=== PATIENT | female | born 1995 | race African-American/Black ===

== ENCOUNTER → 2023-04-04 | Emergency (ER) | payer OTHER ==
[2023-04-04 23:54] LABS: SARS-CoV-2 Antigen Rapid Res Negative (Negative)
--- NOTE | 2023-04-05 00:04 | ER ---
Nurse's Notes [facility] Name: Mady Tidwell Age: 27 yrs Sex: Female : 1995 Arrival Date: 04/04/2023 Time: 23:14 Bed 6 Private MD: Diagnosis: Nausea with vomiting, unspecified;Diarrhea, unspecified Presentation: 04/04 23:18 Chief complaint: Patient states: NEEDS A WORK EXCUSE. WAS HAVING FEVER, N/V/D STARTED jj7 TODAY .FEELING BETTER. Coronavirus screen: At this time, the client does not indicate any symptoms associated with coronavirus-19. Ebola Screen: No symptoms or risks identified at this time. Initial Sepsis Screen: Does the patient meet any 2 criteria? No. Patient's initial sepsis screen is negative. Does the patient have a suspected source of infection? No. Patient's initial sepsis screen is negative. Risk Assessment: Do you want to hurt yourself or someone else? Patient reports no desire to harm self or others. 23:18 Method Of Arrival: Ambulatory [facility] 23:18 Acuity: RUBEN 4 jj7 Triage Assessment: 23:22 General: Appears in no apparent distress. comfortable, Behavior is calm, cooperative, jj7 appropriate for age. Pain: Denies pain. GI: No deficits noted. 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 - Social history:: Smoking status: Patient denies any tobacco usage or history of. Patient uses alcohol, on a daily basis. Patient/guardian denies using street drugs. Screenin:24 [facility] ED Fall Risk Assessment (Adult) History of falling in the last 3 months, jj7 including since admission No falls in past 3 months (0 pts) Confusion or Disorientation No (0 pts) Intoxicated or Sedated No (0 pts) Impaired Gait No (0 pts) Mobility Assist Device Used No (0 pt) Altered Elimination No (0 pt) Score/Fall Risk Level 0 - 2 = Low Risk Oriented to surroundings, Maintained a safe environment, Educated pt \T\ family on fall prevention, incl call for assistance when getting out of bed. Abuse screen: Denies threats or abuse. Nutritional screening: No deficits noted. Tuberculosis screening: No symptoms or risk factors identified. Assessment: 23:24 Reassessment: SEE TRIAGE ASSESSMENT. GI: Abdomen is flat, non-distended. jj7 Vital Signs: 23:18 BP 130 / 73; Pulse 82; Resp 16; Temp 98.4; Pulse Ox 100% ; Weight 90.26 kg; Height 5 jj7 ft. 4 in. ; Pain 0/10; 04/05 00:10 BP 127 / 76; Pulse 80; Resp 19; Pulse Ox 100% ; Pain 0/10; jj7 04/04 23:18 Body Mass Index 34.16 (90.26 kg, 162.56 cm) jj7 04/04 23:18 Pain Scale: Adult jj7 04/05 00:10 Pain Scale: Adult jj7 ED Course: 04/04 23:16 Patient arrived in ED. jj6 23:18 Aleksandra Hernandez FNP-C is [facility]. kb 23:18 Zbigniew Miller MD is Attending Physician. kb 23:22 Triage completed. jj7 23:22 Arm band placed on left wrist. jj7 23:24 Patient has correct armband on for positive identification. jj7 23:24 No provider procedures requiring assistance completed. Patient did not have IV access jj7 during this emergency room visit. 23:26 Flu Sent. jj7 23:26 SARS RAPID Sent. jj7 Administered Medications: No medications were administered Medication: 23:24 VIS not applicable for this client. jj7 Outcome: 04/05 00:03 Discharge ordered by . delia 00:10 Discharged to home ambulatory, with family, jj7 00:10 Condition: good 00:10 Discharge instructions given to patient, Instructed on discharge instructions, Demonstrated understanding of instructions, 00:11 Patient left the ED. jj7 Signatures: Aleksandra Hernandez FNP-C FNP-Isa [place] jj6 Jocelynn Gutierrez RN RN jj7
--- NOTE | 2023-04-05 00:04 | EDPHYS ---
Physician Documentation [facility] Name: Mady Tidwell Age: 27 yrs Sex: Female : 1995 Arrival Date: 04/04/2023 Time: 23:14 Bed 6 Private MD: ED Physician Zbigniew Miller HPI: 04/04 23:44 This 27 yrs old Black Female presents to ER via Ambulatory with complaints of kb Nausea/Vomiting/Diarrhea, Fever. 23:45 Pt is a 27 year old female who reports she had fever, n/v/d that started last night. kb States it continued today so she called into work. States her employer just sent her a message stating she needed a note to return to work tomorrow. States fever, nausea and vomiting have all resolved. Reports her stool is still a little loose. Denies abd pain. States she only came in for evaluation because her employer said she had to. . 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 - Social history:: Smoking status: Patient denies any tobacco usage or history of. Patient uses alcohol, on a daily basis. Patient/guardian denies using street drugs. ROS: 23:43 Neuro: Negative for headache, weakness, numbness, tingling, and seizure, kb 23:43 Constitutional: Positive for fever, 23:43 ENT: Positive for rhinorrhea, sinus congestion, 23:43 Respiratory: Positive for cough, 23:43 Abdomen/GI: Positive for nausea, vomiting, and diarrhea, Negative for abdominal pain, 23:43 All other systems are negative, Exam: 23:43 Constitutional: This is a well developed, well nourished patient who is awake, alert, kb and in no acute distress. Head/Face: Normocephalic, atraumatic. ENT: Moist Mucous membranes Cardiovascular: Regular rate Respiratory: Respirations even and unlabored. No increased work of breathing. Talking in full sentences Abdomen/GI: Soft, non-tender. No distention Skin: Warm, dry with normal turgor. Normal color. MS/ Extremity: Pulses equal, no cyanosis. Neurovascular intact. Full, normal range of motion. Neuro: Awake and alert, GCS 15, oriented to person, place, time, and situation. Moves all extremities. Normal gait. Vital Signs: 23:18 BP 130 / 73; Pulse 82; Resp 16; Temp 98.4; Pulse Ox 100% ; Weight 90.26 kg; Height 5 jj7 ft. 4 in. ; Pain 0/10; 04/05 00:10 BP 127 / 76; Pulse 80; Resp 19; Pulse Ox 100% ; Pain 0/10; 7 04/04 23:18 Body Mass Index 34.16 (90.26 kg, 162.56 cm) [facility] 04/04 23:18 Pain Scale: Adult [facility] 04/05 00:10 Pain Scale: Adult j MDM: 04/04 23:18 Patient medically screened. kb 23:44 Differential diagnosis: flu, covid, uri, gastroenteritis. Data reviewed: vital signs, kb nurses notes. 23:44 Test considered but Not performed: Labs: cbc, cmp considered, but pt reports symptoms kb have resolved and she is tolerating po intake. 04/05 00:02 Counseling: I had a detailed discussion with the patient and/or guardian regarding the kb historical points, exam findings, and any diagnostic results supporting the discharge/admit diagnosis, lab results, the need for outpatient follow up, a family practitioner, to return to the emergency department if symptoms worsen or persist or if there are any questions or concerns that arise at home. 04/04 23:21 Order name: Flu; Complete Time: 00:02 kb 04/04 23:22 Order name: SARS RAPID; Complete Time: 00:02 kb 04/04 23:33 Order name: PO challenge; Complete Time: 00:00 kb Administered Medications: No medications were administered Disposition: 00:43 Co-signature as Attending Physician, Zbigniew Miller MD I agree with the assessment sp4 and plan of care. I reviewed the patient's care provided by the Advanced Practice Provider and agree with the diagnosis and treatment plan. Disposition Summary: 04/05/23 00:03 Discharge Ordered Notes: Location: Home kb Condition: Stable kb Diagnosis - Nausea with vomiting, unspecified kb - Diarrhea, unspecified kb Followup: kb - With: Emergency Department - When: As needed - Reason: Worsening of condition Followup: kb - With: Private Physician - When: 2 - 3 days - Reason: Recheck today's complaints, Continuance of care, Re-evaluation by your physician Discharge Instructions: - Discharge Summary Sheet kb - Food Choices to Help Relieve Diarrhea, Adult kb - Viral Gastroenteritis, Adult, [id number] kb Forms: - Work release form kb - Medication Reconciliation Form kb - Thank You Letter kb - Antibiotic Education kb - Prescription Opioid Use kb - Patient Portal Instructions kb - Leadership Thank You Letter kb Signatures: Dispatcher [employer] EDMS Aleksandra Hernandez FNP-C ROCKY-Jocelynn Cordova RN RN jj7 Zbigniew Miller MD MD sp4 Corrections: (The following items were deleted from the chart) 04/04 23:37 23:22 SARS-COV-2 RT PCR+[id number].[id number].BRZ ordered. EDGA EDGA
[2023-04-05 07:07] VITALS: BP 127/76; TEMP 98.4; O2SAT 100
== END ==
LOC: ER 23:14
DX: R11.2 Nausea with vomiting, unspecified (principal); R19.7 Diarrhea, unspecified; Z11.52 Encounter for screening for COVID-19
CPT/HCPCS: 36415; 87804; 87811; 99283

== ENCOUNTER → 2023-05-09 | Emergency (ER) | payer OTHER ==
[~2023-05-09] MED LIST: NA CHLORIDE 0.9% 1,000 ML ONE; ONDANSETRON 4 MG/2 ML VIAL ONE; POTASSIUM 25 MEQ EFFERV TAB ONE
--- OUTSIDE RECORDS SUMMARY | 2023-05-09 13:03 | XMS REPORT | Continuity of Care Document ---
Author Name Unknown Address [address] [place] [address]. [address] [place] [address] [facility] Address [address] [facility]. [address] [place] [address] Care Team Providers Care Carding Machine Feeder Name Role Phone Unavailable Unavailable Unavailable Encounters Start Date/Time End Date/Time Encounter Type Admission Type Attending Clinicians Care Facility Care Department Encounter ID Source 2023-04-19 10:29:16 2023-04-19 10:29:16 Outpatient [facility] [id number] Fabio Staples 2023-04-05 11:01:16 2023-04-05 11:01:16 Outpatient [facility] [id number] Fabio Maria A Staples Results Test Description Test Time Test Comments Results Result Co mments Source HPV HIGH RISK WITH GENOTYPE, [id number] 17:25:59* Test Item Value Reference Range Interpretation Comme nts HPV HIGH RISK INTERP (test code = 27956) NEGATIVE NEGATIVE HPV 16 (test code = 93300) NEGATIVE HPV 18 (test code = 92142) NEGATIVE HPV, HR, OTHER GENOTYPES (test code = 79543) NEGATIVE Testing methodol ogy is real-time PCR utilizing hydrolysis probes with the Nicol Nicolle 4800 system. The test individually detects genotypes 16 and 18, as well as the other 12 high risk types (31,33,35,39,45,51,52,56 ,58,59,66,68). The expected result is negative. A negative result does not rule out the presence of HPV not included in the genotype set, a low level of infection or specimen sampling error. UNLESS OTHERWISE INDICATED, ALL TESTING PERFORMED AT [facility] [address] [place] [id number] CONSULTING SERVICES PROJECT MANAGER: ELIZABETH GARCIA M.D. CLIA NUMBER [id number] [facility] [place]. [id number] HEPATITIS PANEL, [id number] 04:35:18* Test Item Value Reference Range Interpretation Comme nts HEPATITIS A TOTAL AB (test code = 2725) NON-REACTIVE NON-REACTIVE HEPATITIS B SURF AG (test code = 2739) NON-REACTIVE NON-REACTIVE HEP B CORE TOTAL AB (test code = 2729) NON-REACTIVE NON-REACTIVE HEPATITIS B SURFACE AB (test code = 2737) NON-REACTIVE NON-REACTIVE HEPATITIS C ANTIBODY (test code = 4675) NON-REACTIVE NON-REACTIVE INTERPRETATION HEPATITIS A: (test code = 2552) (NOTE) Hepatitis A sero logy shows no evidence of past exposure to orcurrent infection with hepatitis A virus; patient not immune tohepatitis A. INTERPRETATION HEPATITIS B: (test code = 13634) (NOTE) Hepatitis B sero logy shows no evidence of past exposure to orcurrent infection with hepatitis B virus. No evidence of hepatitis Bimmunization is identified. INTERPRETATION HEPATITIS C: (test code = 44803) (NOTE) Hepatitis C sero logy shows no evidence of exposure to hepatitisC virus at this time. It can take up to 12 months after exposure tothe hepatitis C virus for antibodies to become detectable in the blood in certain patients. HIV 1/2 4TH GEN, RFLX [id number] 04:35:18* Test Item Value Reference Range Interpretation Comme nts HIV 1/2 4TH GEN, RFLX CONF (test code = 3514) NON-REACTIVE NON-REACTIVE UNLESS OTHERWISE INDICATED, ALL TESTING PERFORMED AT [facility] [address] [place] [address] CONSULTING SERVICES PROJECT MANAGER: LEIZABETH GARCIA M.D. [place] NUMBER [id number] [facility] [place]. [id number] LIPID [id number] 04:20:29* Test Item Value Reference Range Interpretation Comme nts CHOLESTEROL (test code = 2210) 172 MG/DL <200 TRIGLYCERIDES (test code = 2232) 205 MG/DL <150 H HDL CHOLESTEROL (test code = 2220) 40 MG/DL >39 CALC LDL CHOL (test code = 2237) 100 MG/DL <100 H NOTE: CALCULATED LDL IS BASED ON BLAKE-ASHBY METHOD WHICHINCLUDES ADJUSTABLE TRIGLYCERIDE:VLDL CHOLESTEROL RATIO.THIS FACTOR VARIES BY MEASURED TRIGLYCERIDE AND NON-HDLCHOLESTEROL CONCENTRATIONS WITH INCREASED CALCULATED LDL SEENIN HIGHER TRIGLYCERIDE OR LOWER NON-HDL SPECIMENS. FOR MOREINFORMATION, SEE CLIENT ANNOUNCEMENT AT [email or web address] RISK RATIO LDL/HDL (test code = 2237) 2.50 RATIO <3.22 COMPREHENSIVE METABOLIC [id number] 04:20:29* Test Item Value Reference Range Interpretation Comme nts GLUCOSE (test code = 2216) 80 MG/DL 70-99 BUN (test code = 2207) 10 MG/DL 6-20 CREATININE (test code = 2213) 0.70 MG/DL 0.60-1.30 eGFR (2020 CKD-EPI) (test code = 90349) 121 ML/MIN/1.73 >60 CALC BUN/CREAT (test code = 2234) 14 RATIO 6-28 SODIUM (test code = 2230) 141 MEQ/L 133-146 POTASSIUM (test code = 2227) 4.1 MEQ/L 3.5-5.4 CHLORIDE (test code = 2214) 102 MEQ/L 95-107 CARBON DIOXIDE (test code = 2205) 22 MEQ/L 19-31 CALCIUM (test code = 2208) 9.7 MG/DL 8.5-10.5 PROTEIN, TOTAL (test code = 2228) 8.0 G/DL 6.1-8.3 ALBUMIN (test code = 2200) 4.4 G/DL 3.5-5.2 CALC GLOBULIN (test code = 2240) 3.6 G/DL 1.9-3.7 CALC A/G RATIO (test code = 2233) 1.2 RATIO 1.0-2.6 BILIRUBIN, TOTAL (test code = 2206) 0.4 MG/DL <=1.2 ALKALINE PHOSPHATASE (test code = 2203) 108 U/L 40-112 AST (test code = 2217) 19 U/L 9-40 ALT (test code = 2218) 25 U/L 5-40 HEMOGLOBIN [id number] 03:12:23* Test Item Value Reference Range Interpretation Comme [facility] HEMOGLOBIN A1c (test code = 48670) 5.7 % 4.2-5.6 H [employer]ATION GUIDELINES FOR HGB A1C: PREDIABETES/INCREASED RISK . . . . . . . 5.7-6.4% DIAGNOSIS OF DIABETES . . . . . . . . . >=6.5% WITH CONFIRMATION OR APPROPRIATE SYMPTOMS NOTE: ASSAY MAY BE AFFECTED BY HEMOGLOBINOPATHIES (SICKLE CELL ANEMIA, S-C DISEASE, OTHERS) OR ARTIFICIALLY LOWERED BY DECREASED RED CELL SURVIVAL (HEMOLYTIC ANEMIAS, BLOOD LOSS, ETC.). CONSIDER ALTERNATE TESTING OR LABORATORY CONSULTATION. CBC W/AUTO DIFF WITH [id number] 02:36:26* Test Item Value Reference Range Interpretation Comme nts WBC (test code = 1001) 7.6 K/UL 3.5-11.0 RBC (test code = 1002) 4.84 M/UL 3.80-5.40 HEMOGLOBIN (test code = 1003) 12.6 G/DL 11.5-15.5 HEMATOCRIT (test code = 1004) 38.9 % 34.0-45.0 MCV (test code = 1005) 80.4 fL 80.0-99.0 MCH (test code = 1006) 26.0 PG 25.0-33.0 MCHC (test code = 1007) 32.4 G/DL 31.0-36.0 RDW (test code = 1038) 13.5 % 11.5-15.0 NEUTROPHILS (test code = 1008) 56.2 % LYMPHOCYTES (test code = 1010) 32.2 % MONOCYTES (test code = 1011) 8.6 % EOSINOPHILS (test code = 1012) 2.0 % BASOPHILS (test code = 1013) 0.7 % IMMATURE GRANULOCYTES (test code = 1036) 0.3 % NUCLEATED RBCS (test code = 1065) 0.0 /100 WBC'S See_Comment [Automated Delya ge] The system which generated this result transmitted reference range: 0.0. The reference range was not used to interpret this result as normal/abnormal. PLATELET COUNT (test code = 1015) 425 K/UL 130-400 H ABSOLUTE NEUTROPHILS (test code = 1066) 4.28 K/UL 1.50-7.50 ABSOLUTE LYMPHOCYTES (test code = 1067) 2.45 K/UL 1.00-4.00 ABSOLUTE MONOCYTES (test code = 1068) 0.65 K/UL 0.20-1.00 ABSOLUTE EOSINOPHILS (test code = 1040) 0.15 K/UL 0.00-0.50 ABSOLUTE BASOPHILS (test code = 1069) 0.05 K/UL 0.00-0.20 ABS IMMATURE GRANULOCYTES (test code = 1020) 0.02 K/UL 0.00-0.10 ABS NUCLEATED RBCS (test code = 03040) 0.00 K/UL 0.00-0.11
[2023-05-09 14:43] LABS: Absolute Lymphocytes (CBC) 2.1 K/uL (0.7-4.9); Hematocrit 36.7 % (36.0-45.0); Lymphocytes % 26.5 % (15.3-44.8); MCV 79.8 fL (80-100); Platelets 397 thou/uL (152-406)
[2023-05-09 14:56] LABS: Albumin 3.7 g/dL (3.4-5.0); Bilirubin Total 0.2 mg/dL (0.2-1.0); Potassium 3.2 mEq/L (3.5-5.1); Protein, Total 8.3 g/dL (6.4-8.2)
[2023-05-09 15:05] LABS: SARS-CoV-2 Antigen Rapid Res Negative (Negative)
--- NOTE | 2023-05-09 15:30 | ER ---
Nurse's Notes [facility] Name: Mady Tidwell Age: 27 yrs Sex: Female : 1995 Arrival Date: 05/09/2023 Time: 13:00 Bed 12 Private MD: Diagnosis: viral gastroenteritis Presentation: 05/09 13:17 Chief complaint: Patient states: Abdominal pain since Tuesday. Nausea, chills, nj1 vomiting, diarrhea today. Coronavirus screen: Vaccine status: Patient reports being unvaccinated. Ebola Screen: Patient denies travel to an Ebola-affected area in the 21 days before illness onset. Initial Sepsis Screen: Does the patient meet any 2 criteria? No. Patient's initial sepsis screen is negative. Does the patient have a suspected source of infection? No. Patient's initial sepsis screen is negative. Risk Assessment: Do you want to hurt yourself or someone else? Patient reports no desire to harm self or others. Onset of symptoms was May 07, 2023. 13:17 Method Of Arrival: Ambulatory [facility] 13:17 Acuity: RUBEN 3 nj1 Historical: - Allergies: 13:22 No Known Allergies; nj1 - PMHx: 13:22 None; nj1 - Immunization history:: Client reports having NOT received the Covid vaccine. - Social history:: Smoking status: Patient denies any tobacco usage or history of. Screenin:36 [facility] ED Fall Risk Assessment (Adult) History of falling in the last 3 months, ap3 including since admission No falls in past 3 months (0 pts). Abuse screen: Denies threats or abuse. Nutritional screening: No deficits noted. Tuberculosis screening: No symptoms or risk factors identified. Assessment: 14:35 Reassessment: Patient is alert, oriented x 3, equal unlabored respirations, skin ap3 warm/dry/pink. General: Appears in no apparent distress. Behavior is calm, cooperative, appropriate for age. Pain: Complains of pain in abdomen Pain began 2-3 days ago. Neuro: Level of Consciousness is awake, alert, obeys commands, Oriented to person, place, time, situation. Cardiovascular: Patient's skin is warm and dry. Respiratory: Airway is patent Respiratory effort is even, unlabored. GI: Abd is soft. Vital Signs: 13:17 BP 139 / 76; Pulse 74; Resp 18; Temp 98.4(O); Pulse Ox 100% on R/A; Weight 88.45 kg; nj1 Height 5 ft. 4 in. ; Pain 5/10; 15:32 BP 132 / 76; Pulse 78; Resp 18; Temp 98; Pulse Ox 99% on R/A; ph 13:17 Body Mass Index 33.47 (88.45 kg, 162.56 cm) nj1 13:17 Pain Scale: Adult [facility] ED Course: 13:02 Patient arrived in ED. im 13:03 Allyson Cevallos PA-C is PHCP. sb4 13:03 Philippe Traylor MD is Attending Physician. sb4 13:21 Triage completed. nj1 13:22 Arm band placed on left wrist. nj1 14:21 Sary Aragon, RN is Primary Nurse. ph 14:35 Initial lab(s) drawn, by me, sent to lab. Flu and/or RSV swab sent to lab. Inserted ap3 saline lock: 22 gauge in right antecubital area, using aseptic technique. Blood collected. 14:36 Patient has correct armband on for positive identification. Bed in low position. Call ap3 light in reach. Side rails up X 1. 15:32 No provider procedures requiring assistance completed. ph 16:23 IV discontinued, intact, bleeding controlled, No redness/swelling at site. Pressure ph dressing applied. Administered Medications: 15:31 Drug: NS 0.9% IV 1000 ml IV at 1 bolus Per protocol; 1000 mL bolus Route: IV; Rate: 1 ph bolus; Site: right antecubital; 16:30 Follow up: Response: No adverse reaction; IV Status: Completed infusion; IV Intake: ph 1000ml 15:31 Drug: Ondansetron IVP 4 mg IVP once; over 2 minutes Route: IVP; Site: right antecubital;ph 16:00 Follow up: Response: No adverse reaction ph 15:31 Drug: Potassium PO Effervescent Tablet 50 mEq PO once; dissolve in 4 ounces of water or ph juice Route: PO; 16:00 Follow up: Response: No adverse reaction ph Medication: 15:32 VIS not applicable for this client. ph Intake: 16:30 IV: 1000ml; Total: 1000ml. ph Outcome: 15:30 Discharge ordered by . sb4 16:23 Discharged to home ambulatory, ph 16:23 Condition: good 16:23 Discharge instructions given to patient, Instructed on discharge instructions, follow up and referral plans. medication usage, Demonstrated understanding of instructions, follow-up care, medications, Prescriptions given X 3, 16:24 Patient left the ED. ph Signatures: Sary Aragon, RN RN ph Mandi Parmar RN RN ap3 Allyson Cevallos, PA-C PA-C sb4 Sada Montiel RN RN nj1 Andree Curran
--- NOTE | 2023-05-09 15:30 | EDPHYS ---
Physician Documentation [facility] Name: Mady Tidwell Age: 27 yrs Sex: Female : 1995 Arrival Date: 05/09/2023 Time: 13:00 Bed 12 Private MD: ED Physician Philippe Traylor HPI: 05/09 13:24 This 27 yrs old Black Female presents to ER via Ambulatory with complaints of Abdominal sb4 Pain, Nausea/Vomiting/Diarrhea. 13:24 nausea, vomiting, diarrhea, abdominal cramping, fever for 2 days now. has been around sb4 children with similar symptoms. was sent home from work today. states she cannot hold anything down. Historical: - Allergies: 13:22 No Known Allergies; nj1 - PMHx: 13:22 None; nj1 - Immunization history:: Client reports having NOT received the Covid vaccine. - Social history:: Smoking status: Patient denies any tobacco usage or history of. ROS: 13:24 Respiratory: Negative for shortness of breath, cough, wheezing, and pleuritic chest sb4 pain, 13:24 Constitutional: Positive for chills, fever, 13:24 Abdomen/GI: Positive for abdominal pain, nausea, vomiting, and diarrhea, 13:24 All other systems are negative, Exam: 13:24 Constitutional: This is a well developed, well nourished patient who is awake, alert, sb4 and in no acute distress. Head/Face: Normocephalic, atraumatic. Eyes: Extra-ocular motions intact. Periorbital areas with no swelling, redness, or edema. ENT: Mucous membranes moist. Cardiovascular: Regular rate and rhythm with a normal S1 and S2. Respiratory: Lungs have equal breath sounds bilaterally, clear to auscultation and percussion. No rales, rhonchi or wheezes noted. No increased work of breathing, no retractions or nasal flaring. Abdomen/GI: Soft, non-tender, no distension. Skin: Warm, dry with normal turgor. Normal color with no rashes, no lesions, and no evidence of cellulitis. MS/ Extremity: Pulses equal, no cyanosis. Neurovascular intact. Full, normal range of motion. Neuro: Awake and alert, GCS 15, oriented to person, place, time, and situation. Motor strength 5/5 in all extremities. Sensory grossly intact. Vital Signs: 13:17 BP 139 / 76; Pulse 74; Resp 18; Temp 98.4(O); Pulse Ox 100% on R/A; Weight 88.45 kg; nj1 Height 5 ft. 4 in. ; Pain 5/10; 15:32 BP 132 / 76; Pulse 78; Resp 18; Temp 98; Pulse Ox 99% on R/A; ph 13:17 Body Mass Index 33.47 (88.45 kg, 162.56 cm) nj1 13:17 Pain Scale: Adult nj1 MDM: 13:24 Patient medically screened. sb4 13:24 Differential diagnosis: viral gastroenteritis, covid, flu, . sb4 15:30 Data reviewed: vital signs, nurses notes, lab test result(s), and as a result, I will sb4 discharge patient. Counseling: I had a detailed discussion with the patient and/or guardian regarding the historical points, exam findings, and any diagnostic results supporting the discharge/admit diagnosis, lab results, to return to the emergency department if symptoms worsen or persist or if there are any questions or concerns that arise at home. 05/09 13:19 Order name: CBC with Diff; Complete Time: 15:03 sb4 05/09 13:19 Order name: CMP; Complete Time: 14:57 sb4 05/09 13:19 Order name: Lipase; Complete Time: 14:57 sb4 05/09 13:19 Order name: SARS RAPID; Complete Time: 15:05 sb4 05/09 13:19 Order name: Flu; Complete Time: 15:17 sb4 05/09 13:19 Order name: IV Saline Lock; Complete Time: 14:35 sb4 05/09 13:19 Order name: Labs collected and sent; Complete Time: 14:35 sb4 Administered Medications: 15:31 Drug: NS 0.9% IV 1000 ml IV at 1 bolus Per protocol; 1000 mL bolus Route: IV; Rate: 1 ph bolus; Site: right antecubital; 16:30 Follow up: Response: No adverse reaction; IV Status: Completed infusion; IV Intake: ph 1000ml 15:31 Drug: Ondansetron IVP 4 mg IVP once; over 2 minutes Route: IVP; Site: right antecubital;ph 16:00 Follow up: Response: No adverse reaction ph 15:31 Drug: Potassium PO Effervescent Tablet 50 mEq PO once; dissolve in 4 ounces of water or ph juice Route: PO; 16:00 Follow up: Response: No adverse reaction ph Disposition: 16:51 Co-signature as Attending Physician, Philippe Traylor MD I reviewed the patient's care rt provided by the Advanced Practice Provider and agree with the diagnosis and treatment plan. Disposition Summary: 05/09/23 15:30 Discharge Ordered Notes: Location: Home sb4 Problem: new sb4 Symptoms: have improved sb4 Condition: Stable sb4 Diagnosis - viral gastroenteritis sb4 Followup: sb4 - With: Emergency Department - When: As needed - Reason: Trouble breathing, Worsening of condition Discharge Instructions: - Discharge Summary Sheet sb4 - Viral Gastroenteritis, Adult, Vnsr-wc-Hyke sb4 Forms: - Work release form sb4 - Thank You Letter sb4 - Patient Portal Instructions sb4 - Leadership Thank You Letter sb4 Prescriptions: - Imodium A-D 2 mg Oral tablet - take 1 tablet ORAL route every 1 to 4 hours as needed for loose stool; sb4 administer after each loose stool until symptoms controlled; do not exceed 8 mg per 24 hrs; 20 tablet; Refills: 0, Product Selection Permitted - Zofran 4 mg Oral Tablet - take 1 tablet ORAL route every 12 hours As needed; 20 tablet; Refills: 0, sb4 Product Selection Permitted - dicyclomine 20 mg Oral tablet - take 1 tablet ORAL route 3 times per day; 30 tablet; Refills: 0, Product sb4 Selection Permitted Signatures: Dispatcher [employer] Sary Martínez RN RN ph Brown, Sophia, PADatC PAMagdi sb4 Philippe Traylor MD MD rt Sada Montiel, RN RN nj1
[2023-05-09 16:57] VITALS: BP 132/76; TEMP 98; O2SAT 99
== END ==
LOC: ER 13:00
DX: A08.4 Viral intestinal infection, unspecified (principal); Z11.52 Encounter for screening for COVID-19; Z28.310 Unvaccinated for COVID-19
CPT/HCPCS: 85025; 36415; 83690; 80053; 87804 ×2; 87811; J2405; J7030; 96361; 96374; 99284

== ENCOUNTER 2023-07-12 23:24 | Emergency (ER) | payer OTHER ==
--- OUTSIDE RECORDS SUMMARY | 2023-07-12 23:26 | XMS REPORT | Continuity of Care Document ---
Author Name Unknown Address [address] [facility] [place] [address] [facility] Address [address] 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 [id number] Fabio Staples 2023-04-05 11:01:16 2023-04-05 11:01:16 Outpatient [facility] [id number] Fabio Maria A Staples Results Test Description Test Time Test Comments Results Result Co mments Source HPV HIGH RISK WITH GENOTYPE, [id number] 17:25:59* Test Item Value Reference Range Interpretation Comme nts HPV HIGH RISK INTERP (test code = 29009) NEGATIVE NEGATIVE HPV 16 (test code = 51960) NEGATIVE HPV 18 (test code = 00018) NEGATIVE HPV, HR, OTHER GENOTYPES (test code = 72825) NEGATIVE Testing methodol ogy is real-time PCR [...] TESTING PERFORMED AT [facility] [address] [place] [id number] ALARM TECHNICIAN: ELIZABETH GARCIA M.D. CLIA NUMBER [id number] [facility] [place]. [id number] HEPATITIS PANEL, [id number] 04:35:18* Test Item Value Reference Range Interpretation [...] A. INTERPRETATION HEPATITIS B: (test code = 95330) (NOTE) Hepatitis B sero logy shows no evidence of past exposure to orcurrent infection with hepatitis B virus. No evidence of hepatitis Bimmunization is identified. INTERPRETATION HEPATITIS C: (test code = 91984) (NOTE) Hepatitis C sero logy shows no evidence of exposure to hepatitisC virus at this time. It can take up to 12 months after exposure tothe hepatitis C virus for antibodies to become detectable in the blood in certain patients. HIV 1/2 4TH GEN, RFLX [id number] 04:35:18* Test Item Value Reference Range Interpretation Comme nts HIV 1/2 4TH GEN, RFLX CONF (test code = 3514) NON-REACTIVE NON-REACTIVE UNLESS OTHERWISE INDICATED, ALL TESTING PERFORMED AT [facility] [address] [place] [address] ALARM TECHNICIAN: Shanelle WORTHY NUMBER [id number] [facility] [place]. [id number] LIPID [id number] 04:20:29* Test Item Value Reference Range Interpretation [...] SPECIMENS. FOR MOREINFORMATION, SEE CLIENT ANNOUNCEMENT AT [email or web address] RISK RATIO LDL/HDL (test code = 2237) 2.50 RATIO <3.22 COMPREHENSIVE METABOLIC [id number] 04:20:29* Test Item Value Reference Range Interpretation Comme nts GLUCOSE (test code = 2216) 80 MG/DL 70-99 BUN (test code = 2207) 10 MG/DL 6-20 CREATININE (test code = 2213) 0.70 MG/DL 0.60-1.30 eGFR (2020 CKD-EPI) (test code = 65308) 121 ML/MIN/1.73 >60 CALC BUN/CREAT (test code [...] G/DL 3.5-5.2 CALC GLOBULIN (test code = 0) 3.6 G/DL 1.9-3.7 CALC A/G RATIO (test code = 2233) 1.2 RATIO 1.0-2.6 BILIRUBIN, TOTAL (test code = 2206) 0.4 MG/DL <=1.2 ALKALINE PHOSPHATASE (test code = 2203) 108 U/L 40-112 AST (test code = 2217) 19 U/L 9-40 ALT (test code = 2218) 25 U/L 5-40 HEMOGLOBIN [id number] 03:12:23* Test Item Value Reference Range Interpretation Comme nts HEMOGLOBIN A1c (test code = 45207) 5.7 % 4.2-5.6 H [employer] GUIDELINES FOR HGB A1C: [...] OR LABORATORY CONSULTATION. CBC W/AUTO DIFF WITH [id number] 02:36:26* Test Item Value Reference Range Interpretation [...] = 1065) 0.0 /100 WBC'S See_Comment [Automated [employer] ge] The system which generated this result [...] 0.00-0.10 ABS NUCLEATED RBCS (test code = 05994) 0.00 K/UL 0.00-0.11
[2023-07-12] MEDS ORDERED: IBUPROFEN 400 MG TAB ONE (23:58)
[2023-07-12] MEDS ORDERED: ACETAMINOPHEN 500 MG TAB ONE (23:58)
[2023-07-12] MEDS ORDERED: GUAIFENESIN/DM 5 ML UCUP ONE (23:59)
[2023-07-13 00:25] LABS: Specific Gravity > 1.030 (1.005-1.030)
--- NOTE | 2023-07-13 00:46 | EDPHYS ---
Physician Documentation [facility] Name: Mady Tidwell Age: 27 yrs Sex: Female : 1995 Arrival Date: 07/12/2023 Time: 23:24 Bed 10 Private MD: ED Physician Zbigniew Miller HPI: 07/11 23:31 This 27 yrs old Black Female presents to ER via Unassigned with complaints of Headache sp4 < 24hrs Old, Cold Symptoms. 07/12 01:17 27-year-old black female presents with acute onset of headache congestion and cough sp4 starting Tuesday 3 days ago. 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 Last tetanus immunization: < 5 years ago Flu vaccine is not up to date. - Infectious Disease History:: Denies. - Social history:: Smoking status: Patient denies any tobacco usage or history of. Patient uses alcohol, occasionally. Patient/guardian denies using street drugs. - Family history:: not pertinent. ROS: 07/12 01:17 Constitutional: Negative for fever, chills, and weight loss, positive for headache, sp4 positive sinus pressure, positive congestion, positive cough All other systems are negative, Exam: 01:17 Constitutional: This is a well developed, well nourished patient who is awake, alert, sp4 and in no acute distress. Head/Face: Normocephalic, atraumatic. Eyes: Pupils equal round and reactive to light, extra-ocular motions intact. Lids and lashes normal. Conjunctiva and sclera are not injected. Cornea within normal limits. Periorbital areas with no swelling, redness, or edema. ENT: Nares patent. No nasal discharge, no septal abnormalities noted. Tympanic membranes are normal and external auditory canals are clear. Oropharynx with no redness, swelling, or masses, exudates, or evidence of obstruction, uvula midline. Mucous membranes moist. Neck: Trachea midline, no thyromegaly or masses palpated, and no cervical lymphadenopathy. Supple, full range of motion without nuchal rigidity, or vertebral point tenderness. Chest/axilla: Normal chest wall appearance and motion. Nontender with no deformity. No lesions are appreciated. Cardiovascular: Regular rate and rhythm with a normal S1 and S2. No gallops, murmurs, or rubs. Normal PMI, no JVD. No pulse deficits. Respiratory: Lungs have equal breath sounds bilaterally, clear to auscultation and percussion. No rales, rhonchi or wheezes noted. No increased work of breathing, no retractions or nasal flaring. Abdomen/GI: Soft, with normal bowel sounds. No distension or tympany. No guarding or rebound. No evidence of tenderness throughout. Back: No spinal tenderness. No costovertebral tenderness. Skin: Warm, dry with normal turgor. Normal color with no rashes, no lesions, and no evidence of cellulitis. MS/ Extremity: Pulses equal, no cyanosis. Neurovascular intact. Full, normal range of motion. Neuro: Awake and alert, GCS 15, oriented to person, place, time, and situation. Cranial nerves II-XII grossly intact. Motor strength 5/5 in all extremities. Sensory grossly intact. Psych: Awake, alert, with orientation to person, place and time. Behavior, mood, and affect are within normal limits Vital Signs: 07/11 23:30 BP 128 / 71; Pulse 78; Resp 16; Temp 97.7; Pulse Ox 100% on R/A; Weight 82.1 kg; Height pf1 5 ft. 4 in. ; Pain 5/10; 07/12 00:30 BP 117 / 75; Pulse 72; Resp 16; Temp 98.1; Pulse Ox 100% on R/A; Pain 3/10; pf1 07/11 23:30 Body Mass Index 31.07 (82.10 kg, 162.56 cm) pf1 07/11 23:30 Pain Scale: Adult pf1 07/12 00:30 Pain Scale: Adult pf1 [place] Coma Score: 01:17 Eye Response: spontaneous(4). Motor Response: obeys commands(6). Verbal Response: sp4 oriented(5). Total: 15. 01:17 Eye Response: spontaneous(4). Motor Response: obeys commands(6). Verbal Response: sp4 oriented(5). Total: 15. MDM: 07/11 23:48 Patient medically screened. sp4 07/12 01:17 Differential diagnosis: cluster headache, migraine, vasomotor headache. Data reviewed: sp4 vital signs, nurses notes, lab test result(s), UPT: negative. ED course: Patient likely has acute common cold with upper viral respiratory infection.. 07/11 23:48 Order name: Test, Urine; Complete Time: 00:44 sp4 Administered Medications: 00:05 Drug: Acetaminophen PO 1000 mg PO once Route: PO; pf1 01:00 Follow up: Response: No adverse reaction; Marked relief of symptoms pf1 00:29 Drug: Ibuprofen PO 800 mg PO once Route: PO; pf1 01:00 Follow up: Response: No adverse reaction; Marked relief of symptoms; Pain is decreased pf1 00:29 Drug: Dextromethorphan-Guaifenesin PO Liquid 10 mg-100 mg/5 mL 10 ml PO once Route: PO; pf1 01:00 Follow up: Response: No adverse reaction; Marked relief of symptoms pf1 Disposition Summary: 07/13/23 00:45 Discharge Ordered Problem: new sp4 Symptoms: have improved sp4 Condition: Stable sp4 Diagnosis - Other specified viral diseases sp4 - Acute upper respiratory infection, unspecified sp4 - Acute viral upper respiratory infection sp4 Followup: sp4 - With: Private Physician - When: 7 - 10 days - Reason: Recheck today's complaints Discharge Instructions: - Discharge Summary Sheet sp4 - Upper Respiratory Infection, Adult sp4 Forms: - Patient Portal Instructions sp4 Prescriptions: - dextromethorphan-guaifenesin 20-400 mg Oral tablet - take 1 tablet ORAL route every 6 hours PRN cough; 40 tablet; Refills: 0, sp4 Product Selection Permitted - diphenhydramine HCl 25 mg Oral capsule - take 2 capsule ORAL route every evening PRN congestion; 60 capsule; Refills: 0, sp4 Product Selection Permitted - Ibuprofen 800 mg Oral Tablet - take 1 tablet ORAL route every 8 hours As needed take with food; 30 tablet; sp4 Refills: 0, Product Selection Permitted - Claritin 10 mg Oral Tablet - take 1 tablet ORAL route once daily As needed; 30 tablet; Refills: 0, Product sp4 Selection Permitted - promethazine 25 mg Oral Tablet - take 1 tablet ORAL route every 6 hours As needed; 20 tablet; Refills: 0, sp4 Product Selection Permitted Signatures: Dispatcher [employer] Tahmina Serna RN RN pf1 Zbigniew Miller MD MD sp4
--- NOTE | 2023-07-13 00:46 | ER ---
Nurse's Notes [facility] Name: Mady Tidwell Age: 27 yrs Sex: Female : 1995 Arrival Date: 07/12/2023 Time: 23:24 Bed 10 Private MD: Diagnosis: Other specified viral diseases;Acute upper respiratory infection, unspecified;Acute viral upper respiratory infection Presentation: 07/11 23:30 Chief complaint: Patient states: cough, congestion with frontal headache pain of pf1 5,onset Tuesday. 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 Coronavirus screen: Vaccine status: Patient reports being unvaccinated. Client denies travel out of the [place] in the last 14 days. Client presents with at least one sign or symptom that may indicate coronavirus-19. Standard/surgical mask placed on the client. Ebola Screen: Patient negative for fever greater than or equal to 101.5 degrees Fahrenheit, and additional compatible Ebola Virus Disease symptoms. Initial Sepsis Screen: Does the patient meet any 2 criteria? No. Patient's initial sepsis screen is negative. Does the patient have a suspected source of infection? No. Patient's initial sepsis screen is negative. Risk Assessment: Do you want to hurt yourself or someone else? Patient reports no desire to harm self or others. Onset of symptoms was July 10, 2023. 23:30 Method Of Arrival: Ambulatory pf1 23:30 Acuity: RUBEN 4 pf1 Triage Assessment: 23:38 Headache History: Denies prior headaches. General: Appears in no apparent distress. pf1 comfortable, well groomed, well developed, Behavior is calm, cooperative, appropriate for age, quiet. Pain: Complains of pain in frontal headache Pain currently is 5 out of 10 on a pain scale. Pain began 2-3 days ago. EENT: No deficits noted. No signs and/or symptoms were reported regarding the EENT system. EENT: Reports nasal congestion. Neuro: Level of Consciousness is awake, alert, obeys commands, Oriented to person, place, time, situation, Reports headache frontal area. Cardiovascular: No deficits noted. Capillary refill < 3 seconds Patient's skin is warm and dry. Respiratory: Reports cough that is Airway is patent Respiratory effort is even, unlabored, Respiratory pattern is regular, symmetrical. Respiratory: Reports. GI: No deficits noted. No signs and/or symptoms were reported involving the gastrointestinal system. : No deficits noted. No signs and/or symptoms were reported regarding the genitourinary system. Derm: No deficits noted. No signs and/or symptoms reported regarding the dermatologic system. Musculoskeletal: No deficits noted. No signs and/or symptoms reported regarding the musculoskeletal system. 23:38 Pain: Also complains of congestion with cough. 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 Last tetanus immunization: < 5 years ago Flu vaccine is not up to date. - Infectious Disease History:: Denies. - Social history:: Smoking status: Patient denies any tobacco usage or history of. Patient uses alcohol, occasionally. Patient/guardian denies using street drugs. - Family history:: not pertinent. Screenin:39 [facility] ED Fall Risk Assessment (Adult) History of falling in the last 3 months, pf1 including since admission No falls in past 3 months (0 pts) Confusion or Disorientation No (0 pts) Intoxicated or Sedated No (0 pts) Impaired Gait No (0 pts) Mobility Assist Device Used No (0 pt) Altered Elimination No (0 pt) Score/Fall Risk Level 0 - 2 = Low Risk Oriented to surroundings, Maintained a safe environment, Educated pt \T\ family on fall prevention, incl call for assistance when getting out of bed, Assessed \T\ reinforced patient's understanding of fall precautions, Provided non-skid footwear, Hourly rounding (assess needs \T\ fall precautionary measures) done, Used ambulatory aids as needed (educated on \T\ assisted with), Used gait belt as appropriate. Abuse screen: Denies threats or abuse. Nutritional screening: No deficits noted. Tuberculosis screening: No symptoms or risk factors identified. Assessment: 23:47 Reassessment: see triage assessment. pf1 07/12 00:30 Reassessment: Patient appears in no apparent distress at this time. Patient and/or pf1 family updated on plan of care and expected duration. Pain level reassessed. Patient is alert, oriented x 3, equal unlabored respirations, skin warm/dry/pink. Patient states symptoms have improved. Vital Signs: 07/11 23:30 BP 128 / 71; Pulse 78; Resp 16; Temp 97.7; Pulse Ox 100% on R/A; Weight 82.1 kg; Height pf1 5 ft. 4 in. ; Pain 5/10; 07/12 00:30 BP 117 / 75; Pulse 72; Resp 16; Temp 98.1; Pulse Ox 100% on R/A; Pain 3/10; pf1 07/11 23:30 Body Mass Index 31.07 (82.10 kg, 162.56 cm) pf1 07/11 23:30 Pain Scale: Adult pf1 07/12 00:30 Pain Scale: Adult pf1 [place] Coma Score: 01:17 Eye Response: spontaneous(4). Motor Response: obeys commands(6). Verbal Response: sp4 oriented(5). Total: 15. 01:17 Eye Response: spontaneous(4). Motor Response: obeys commands(6). Verbal Response: sp4 oriented(5). Total: 15. ED Course: 07/11 23:28 Patient arrived in ED. ra3 23:31 Zbigniew Miller MD is Attending Physician. sp4 23:36 Triage completed. pf1 23:38 Arm band placed on right wrist. pf1 23:38 Patient has correct armband on for positive identification. Bed in low position. Call pf1 light in reach. Side rails up X 1. 23:47 No provider procedures requiring assistance completed. pf1 07/12 00:00 Urine collected: clean catch specimen, clear. pf1 00:05 Test, Urine Sent. pf1 01:00 Provided Education on: prescriptions. pf1 01:00 Patient did not have IV access during this emergency room visit. pf1 Administered Medications: 00:05 Drug: Acetaminophen PO 1000 mg PO once Route: PO; pf1 :00 Follow up: Response: No adverse reaction; Marked relief of symptoms pf1 :29 Drug: Ibuprofen PO 800 mg PO once Route: PO; pf1 01:00 Follow up: Response: No adverse reaction; Marked relief of symptoms; Pain is decreased pf1 :29 Drug: Dextromethorphan-Guaifenesin PO Liquid 10 mg-100 mg/5 mL 10 ml PO once Route: PO; pf1 01:00 Follow up: Response: No adverse reaction; Marked relief of symptoms pf1 Medication: 01:00 VIS not applicable for this client. pf1 Outcome: 00:45 Discharge ordered by . sp4 01:00 Discharged to home ambulatory, pf1 01:00 Condition: improved pf1 01:00 Discharge instructions given to patient, Instructed on discharge instructions, follow up and referral plans. Demonstrated understanding of instructions, follow-up care, medications, Prescriptions given X 5 01:00 Patient left the ED. pf1 Signatures: Tahmina Moralez RN RN pf1 Zbigniew Miller MD MD sp4 Jazmine Ramos ra3 Corrections: (The following items were deleted from the chart) 03:56 01:18 Patient left the ED. pf1 pf1
[2023-07-13 01:51] VITALS: BP 128/71; TEMP 97.7; O2SAT 100
== END 2023-07-13 01:18 | disposition home or self-care (01) ==
LOC: ER 23:24
DX: B33.8 Other specified viral diseases (principal); J06.9 Acute upper respiratory infection, unspecified
CPT/HCPCS: 81025; 99284